=== PATIENT | female | born 1990 | race American Indian/Alaskan Native ===

== ENCOUNTER 2018-11-02 21:33 | Inpatient (IN) | payer MEDICAID ==
[2018-11-02] MEDS ORDERED: STADOL IV PRN (22:38)
[2018-11-02] MEDS ORDERED: SUBLIMAZE IV PRN (22:39)
[2018-11-02] MEDS ORDERED: LACTATED RINGERS 1,000 ML IV SCH (23:00)
[2018-11-02 23:12] LABS: Hematocrit 33.2 % (30.3-42.9); Hemoglobin 10.8 gm/dl (10.1-14.3); Mean Corpuscular HGB Conc 33 % (30-34); Mean Corpuscular Volume 79 fl (79-97); Platelet Count 304 K/mm3 (140-440); Red Blood Count 4.22 M/mm3 (3.65-5.03); Red Cell Distribution Width 14.3 % (13.2-15.2)
[2018-11-02] MEDS ORDERED: AMPICILLIN/NS 2 GM/100 ML 2 GM/100 ML BAG IV ONE (23:30)
[2018-11-03] MEDS ORDERED: PITOCin/NS 20 UNIT/1000ML DRIP 20,000 MILLIUNITS/1,000 ML BAG IV ONE ×3 (01:32→04:20)
[2018-11-03] MEDS ORDERED: NARCAN 2 MG/2 ML IV PRN (01:34)
--- NOTE | 2018-11-03 01:36 | Anesthesia Day of Surgery ---
Anesthesia Day of Surgery - Day of Surgery Patient Examined: Yes Patient H&P Reviewed: Yes Patient is NPO: Yes Beta Blockers: No Cardiac Clearance: No Pulmonary Clearance: No Misbah's Test: N/A
--- NOTE | 2018-11-03 01:36 | Anesthesia Consultation ---
Anesthesia Consult and Med Hx Date of service: 11/03/18 - Airway Anesthetic Teeth Evaluation: Good ROM Head & Neck: Adequate Mental/Hyoid Distance: Adequate Mallampati Class: Class II Intubation Access Assessment: Probably Good - Pulmonary Exam CTA: Yes - Cardiac Exam Cardiac Exam: RRR - Pre-Operative Health Status ASA Pre-Surgery Classification: ASA2 Proposed Anesthetic Plan: Epidural - Pulmonary Hx Smoking: No Hx Asthma: No Hx Respiratory Symptoms: No SOB: No COPD: No Home Oxygen Therapy: No Hx Pneumonia: No Hx Sleep Apnea: No - Cardiovascular System Hx Hypertension: No Hx Coronary Artery Disease: No Hx Heart Attack/AMI: No Hx Angina: No Hx Percutaneous Transluminal Coronary Angioplasty (PTCA): No Hx Cardia Arrhythmia: No Hx Pacemaker: No Hx Internal Defibrillator: No Hx Valvular Heart Disease: No Hx Heart Murmur: No Hx Peripheral Vascular Disease: No - Central Nervous System Hx Neuromuscular Disorder: No Hx Seizures: No CVA: No Hx Back Pain: Yes Hx Psychiatric Problems: No - Gastrointestinal Hx Ulcer: No Hx Gastroesophageal Reflux Disease: No - Endocrine Hx Renal Disease: No Hx End Stage Renal Disease: No Hx Cirrhosis: No Hx Liver Disease: No Hx Insulin Dependent Diabetes: No Hx Non-Insulin Dependent Diabetes: No Hx Thyroid Disease: No Hx Hypothyroidism: No Hx Hyperthyroidism: No - Hematic Hx Anemia: No Hx Sickle Cell Disease: No - Other Systems Hx Alcohol Use: No Hx Substance Use: No Hx Cancer: No Hx Obesity: Yes
--- NOTE | 2018-11-03 01:37 | Post Anesthesia Evaluation ---
- Post Anesthesia Evaluation Patient Participated: Yes Airway Patent: Yes Stable Respiratory Function: Yes Nausea/Vomiting: No Temp > 96.8F: Yes Pain Manageable: Yes Adequeate Hydration: Yes Anesthesia Complications: No Block Receding Appropriately: Yes Patient on Ventilator: No
[2018-11-03] MEDS ORDERED: fentaNYL-BUPIV 2 MCG/ML-0.125% 200 MCG/100 ML BAG EPIDURAL SCH (02:00)
[2018-11-03] MEDS ORDERED: PITOCin/NS 20 UNIT/1000ML DRIP 20 UNITS/1,000 ML BAG IV SCH (02:20)
[2018-11-03] MEDS ORDERED: LANSINOH TP PRN (02:50)
[2018-11-03] MEDS ORDERED: ZOFRAN IV PRN (02:50)
[2018-11-03] MEDS ORDERED: NORCO 5/325 PO PRN (02:50)
[2018-11-03] MEDS ORDERED: MILK OF MAGNESIA PO PRN (02:50)
[2018-11-03] MEDS ORDERED: TYLENOL PO PRN (02:50)
[2018-11-03] MEDS ORDERED: DULCOLAX PR PRN (02:50)
[2018-11-03] MEDS ORDERED: PHENERGAN PO PRN (02:50)
[2018-11-03] MEDS ORDERED: BENADRYL PO PRN (02:50)
[2018-11-03] MEDS ORDERED: PHENERGAN PR PRN (02:50)
[2018-11-03] MEDS ORDERED: TUCKS PAD TP PRN (02:50)
--- NOTE | 2018-11-03 02:57 | History and Physical Report ---
History of Present Illness Date of examination: 11/03/18 Date of admission: 11/02/18 22:32 Chief complaint: contractions History of present illness: 28-year-old 002 at 39+3 who presents in active labor with regular uterine contractions and advanced cervical dilatation. The patient's records are not currently available. The patient states that she is GBS positive for IV antibiotics will be initiated Past History Past Medical History: no pertinent history Past Surgical History: no surgical history Social history: single - Obstetrical History Expected Date of Delivery: 11/07/18 Actual Gestation: 39 Week(s) 3 Day(s) : 3 Para: 2 Hx # Term Pregnancies: 2 Number of Pregnancies: 0 Spontaneous Abortions: 0 Induced : 0 Number of Living Children: 2 Medications and Allergies Allergies Allergy/AdvReac Type Severity Reaction Status Date / Time No Known Allergies Allergy Unverified 11/02/18 22:37 Active Meds: Active Medications Acetaminophen (Tylenol) 650 mg PO Q4H PRN PRN Reason: Pain MILD(1-3)/Fever >100.5/LEE Acetaminophen/Hydrocodone Bitart ([place] 5/325) 2 each PO Q6H PRN PRN Reason: Pain, Moderate (4-6) Bisacodyl (Dulcolax) 10 mg MT BID PRN PRN Reason: Constipation Butorphanol Tartrate (Stadol) 2 mg IV Q2H PRN PRN Reason: Labor Pain Last Admin: 11/02/18 23:17 Dose: 2 mg Documented by: Diphenhydramine HCl (Benadryl) 25 mg PO Q6H PRN PRN Reason: Itching Ephedrine Sulfate (Ephedrine Sulfate) 10 mg IV Q2M PRN PRN Reason: Hypotension Fentanyl (Sublimaze) 100 mcg IV Q2HR PRN PRN Reason: Labor Pain Lactated Ringer's (Lactated Ringers) 1,000 mls @ 125 mls/hr IV DIRECT BRI Fentanyl/Bupivacaine/Sodium Chlor (Fentanyl-Bupiv 2 Mcg/Ml-0.125%) 200 mcg in 100 mls @ 12 mls/hr EPIDURAL TITR BRI; Protocol Ampicillin Sodium (Polycillin/Ns 2 Gm/100 Ml) 2 gm in 100 mls @ 100 mls/hr IV Q6HR BRI Stop: 11/04/18 18:59 Oxytocin/Sodium Chloride (Pitocin/Ns 30 Unit/500ml) 30 units in 500 mls @ 4 ml s/hr IV TITR BRI; Protocol Ibuprofen (Motrin) 600 mg PO Q6H BRI Magnesium Hydroxide (Milk Of Magnesia) 30 ml PO HS PRN PRN Reason: Constipation Multi-Ingredient Ointment (Lansinoh) 1 applic TP PRN PRN PRN Reason: Sore Nipples Naloxone HCl (Narcan 2 Mg/2 Ml) 0.2 mg IV Q5M PRN PRN Reason: Respiratory sedation Ondansetron HCl (Zofran) 4 mg IV Q8H PRN PRN Reason: Nausea And Vomiting Promethazine HCl (Phenergan) 25 mg MT Q6H PRN PRN Reason: Nausea And Vomiting Promethazine HCl (Phenergan) 25 mg PO Q6H PRN PRN Reason: Nausea And Vomiting Sodium Chloride (Sodium Chloride Flush Syringe 10 Ml) 10 ml IV PRN NR Witch Marisabel/Glycerin (Tucks Pad) 1 each TP PRN PRN PRN Reason: Hemorrhoid/cleansing/soothing Review of Systems All systems: negative Genitourinary: contractions - Vital Signs Vital signs: Vital Signs Pulse BP 100 H 143/81 11/02/18 21:51 11/02/18 21:51 Temp Pulse Resp BP Pulse Ox 100 H 124/58 100 11/03/18 02:32 11/03/18 02:32 11/03/18 02:21 - Physical Exam Breasts: Positive: deferred Cardiovascular: Regular rate Lungs: Positive: Clear to auscultation Results Result Diagrams: 11/02/18 22:40 Abnormal lab results 11/02/18 Range/Units 22:40 MCH 26 L (28-32) pg All other labs normal. Assessment and Plan - Patient Problems (1) Active labor at term Current Visit: Yes Status: Acute Plan to address problem: admit to L&D
[2018-11-03] MEDS ORDERED: PITOCin/NS 30 UNIT/500ML 30 UNITS/500 ML BAG IV SCH (03:00)
[2018-11-03] MEDS ORDERED: SODIUM CHLORIDE FLUSH SYRINGE 10 ML IV NR (03:00)
--- NOTE | 2018-11-03 03:02 | Procedure Note ---
OB Delivery Note - Delivery Date of Delivery: 11/03/18 Surgeon: RODERICK HERRERA Estimated blood loss: 300cc - Vaginal Delivery presentation: vertex Delivery position: OA Intrapartum events: meconium Delivery monitor: external FHT Route of delivery: Delivery placenta: spontaneous Delivery cord: nuchal cord, 3 umbilical vessels Episiotomy: none Delivery laceration: none Anesthesia: epidural Delivery comments: The patient progressed to complete complete +2 and post deliver a liveborn female infant with Apgars of 7 and 9 weight 6 lbs. 10 oz. After delivery of the head was noted to be a tight nuchal cord that had to be surgically reduced. There was also evidence of meconium stained fluid therefore pediatrics were in attendance. The infant was immediately transferred to the [facility] for further evaluation. The placenta delivered spontaneously intact with a three-vessel cord. No lacerations were noted. Estimated blood loss of 300 mL. - A at 1 minute: 7 at 5 minutes: 9 Infant Gender: Female (weight 6 lbs. 10 oz.)
[2018-11-03] MEDS ORDERED: CYTOTEC PR ONE (03:48)
[2018-11-03] MEDS ORDERED: CYTOTEC ONE (03:52)
[2018-11-03] MEDS: IBUPROFEN PO SCH ×4 (05:30→23:16)
[2018-11-03] MEDS ORDERED: AMPICILLIN/NS 2 GM/100 ML 2 GM/100 ML BAG IV SCH (06:00)
[2018-11-03 15:04] LABS: Hematocrit 28.8 % (30.3-42.9); Hemoglobin 9.3 gm/dl (10.1-14.3)
[2018-11-04] MEDS: IBUPROFEN PO SCH ×3 (05:43→19:02)
--- NOTE | 2018-11-04 08:23 | Progress Note ---
Assessment and Plan A: PPD#1 s/p at term, Asymptomatic anemia P: Routine care. Anticipate discharge tomorrow. Subjective - Subjective Date of service: 11/04/18 Principal diagnosis: s/p at term Interval history: No overnight events. Patient reports: appetite normal, voiding normally, pain well controlled, ambulating normally, no nauseated [place]: doing well Objective - Vital Signs Latest vital signs: Vital Signs Temp Pulse Resp BP BP Pulse Ox 11/04/18 08:19 98.1 F 83 18 119/80 99 11/04/18 07:58 98.0 F 18 11/04/18 07:56 98.1 F 16 119/80 11/04/18 07:54 83 119/80 99 11/04/18 00:00 98.4 F 83 20 111/54 98 11/03/18 19:35 98.2 F 84 20 104/69 99 11/03/18 17:45 18 11/03/18 16:35 98.2 F 82 20 113/55 11/03/18 16:20 97.0 F L 86 20 107/61 100 11/03/18 13:15 16 11/03/18 12:15 16 11/03/18 09:03 77 20 109/51 99 11/03/18 08:50 97.7 F 81 20 117/51 Intake and Output 11/03/18 11/04/18 11/04/18 22:59 06:59 14:59 Intake Total 520 120 Output Total 400 Balance 120 120 Intake: Oral 520 120 Output: Urine 400 Void 400 Other: Total, Intake Amount 200 120 Total, Output Amount 400 # Voids Void 1 1 - Exam Breasts: Present: deferred Cardiovascular: Present: Regular rate Lungs: Present: Clear to auscultation Abdomen: Present: soft Uterus: Present: fundal height below umbilicus Extremities: Present: normal - Labs Labs: Abnormal lab results 11/03/18 Range/Units 14:11 Hgb 9.3 L (10.1-14.3) gm/dl Hct 28.8 L (30.3-42.9) %
--- NOTE | 2018-11-04 08:25 | Discharge Summary ---
Providers - Providers Date of Admission: 11/02/18 22:32 Date of discharge: 11/05/18 Attending physician: RODERICK HERRERA Primary care physician: RODERICK HERRERA Hospitalization Reason for admission: active labor Delivery: Procedure details: Please see delivery note. Episiotomy: none Laceration: none complications: none Discharge diagnosis: IUP at term delivered [place] baby: female Hospital course: Patient was admitted in active labor went on to have a spontaneous vaginal delivery which she tolerated well. Her course was uncomplicated as for discharge arterial day #2. She will follow up in the office in 4 weeks. Condition at discharge: Stable Disposition: DC- TO HOME OR SELFCARE - Discharge Diagnoses (1) Term of female Status: Acute (2) Anemia Status: Acute Qualifiers: Anemia type: unspecified type Qualified Code(s): D64.9 - Anemia, unspecified (3) Active labor at term Status: Acute Plan - Discharge Medications Prescriptions: Ferrous Sulfate [Feosol 325 MG tab] 325 mg PO BID #30 tablet Ibuprofen [Motrin] 600 mg PO Q8H PRN #30 tablet PRN Reason: Pain oxyCODONE /ACETAMINOPHEN [Percocet 5/325] 1 tab PO Q6HR PRN #30 tablet PRN Reason: Pain - Provider Discharge Summary Activity: routine, no sex for 6 weeks, no heavy lifting 4 weeks, no strenuous exercise Diet: routine Instructions: routine Additional instructions: [] Smoking cessation referral if applicable(refer to patient education folder for contact #) [] Refer to [facility]'s [facility] Booklet Call your doctor immediately for: * Fever > 100.5 * Heavy vaginal bleeding ( >1 pad per hour) * Severe persistent headache * Shortness of breath * Reddened, hot, painful area to leg or breast * Drainage or odor from incision. * Keep incision clean and dry at all times and follow doctor's instructions regarding bathing/showering - Follow up plan Follow up: RODERICK HERRERA MD [Primary Care Provider] - 12/05/18 (Please call to schedule appt )
[2018-11-05] MEDS: IBUPROFEN PO SCH ×2 (05:44)
[2018-11-05] MEDS ORDERED: BOOSTRIX IM ONE (06:00)
[2018-11-05 09:10] VITALS: BP 120/55
== END 2018-11-05 17:52 | disposition home or self-care (01) | DRG 775 ==
LOC: TRG 21:33 → LD 22:32 → OB 11-03 04:33
PROVIDERS: ADMIT Obstetrics & Gynecology; ATTEND Obstetrics & Gynecology
PROC: 10E0XZZ Delivery of Products of Conception, External Approach (ICD-10-PCS; principal; 2018-11-03)
PROC: 3E0R3BZ Introduction of Anesthetic Agent into Spinal Canal, Percutaneous Approach (ICD-10-PCS; 2018-11-03)
PROC: 00HU33Z Insertion of Infusion Device into Spinal Canal, Percutaneous Approach (ICD-10-PCS; 2018-11-03)
PROC: 3E0234Z Introduction of Serum, Toxoid and Vaccine into Muscle, Percutaneous Approach (ICD-10-PCS; 2018-11-05)
DX: O99.824 Streptococcus B carrier state complicating childbirth (principal); Z3A.39 39 weeks gestation of pregnancy; Z37.0 Single live birth; E66.9 Obesity, unspecified; O99.214 Obesity complicating childbirth; O69.1XX0 Labor and delivery complicated by cord around neck, with compression, not applicable or unspecified; O77.0 Labor and delivery complicated by meconium in amniotic fluid; O90.81 Anemia of the puerperium; D64.9 Anemia, unspecified; Z23 Encounter for immunization
CPT/HCPCS: 36415; 85014; 85018; 85027; 86592; 86850; 86900; 86901; 90471; 90715; G0378; A6250; J0290; J0595; J2590; J7120